=== PATIENT | male | born 1935 | race Caucasian/White ===

== ENCOUNTER → 2018-11-11 14:37 | Outpatient (CLI) | payer MEDICARE, SELFPAY ==
--- NOTE | 2018-11-11 14:40 | RAD_ITS ---
STUDY: X-RAY - LEFT SHOULDER REASON FOR EXAM: Male, 83 years old. Shoulder pain TECHNIQUE: 4 view(s) of the shoulder. COMPARISON: None. FINDINGS: There is generalized osteopenia. There are small osteophytes at the AC joint. There is mild sclerosis of greater tuberosity. There are calcifications lateral to the greater tuberosity likely within the subdeltoid bursa. Normal visualized pulmonary apex. RAD/Shoulder min 2 Views IMPRESSION: Benign soft tissue calcifications lateral to the greater tuberosity which can be associated with chronic calcific tendinitis and bursitis, no acute fractures Electronically Signed: Bassam Freire, at 8:02 EDT Tel , Service support ,
--- NOTE | 2018-11-11 14:40 | RAD_ITS ---
STUDY: X-RAY - RIGHT SHOULDER REASON FOR EXAM: Male, 83 years old. Shoulder pain TECHNIQUE: 4 view(s) of the shoulder. COMPARISON: None. FINDINGS: No acute fractures. There is mild osteopenia.. There are small glenoid osteophytes. There are soft tissue calcifications superior to the humeral head. Normal visualized pulmonary apex. RAD/Shoulder min 2 Views IMPRESSION: Benign soft tissue calcifications superior to the humeral head which has high correlation with chronic calcific tendinitis, bursitis cannot be excluded. No acute fractures Mild osteoarthrosis Electronically Signed: Bassam Freire, at 8:05 EDT Tel , Service support ,
== END ==
PROVIDERS: PCP Internal Medicine; Referring Provider Orthopaedic Surgery; Visit Provider Orthopaedic Surgery
DX: M25.511 Pain in right shoulder (principal); M25.512 Pain in left shoulder
CPT/HCPCS: 73030

== ENCOUNTER → 2020-04-25 12:56 | Outpatient (CLI) | payer MEDICARE, SELFPAY ==
[2019-10-01 07:53] VITALS: BMI 31.6
--- NOTE | 2020-04-25 13:02 | CT_ITS ---
ACR Level 3 findings have been noted. An addendum which confirms receipt of the report will follow. STUDY: CT CHEST WITHOUT CONTRAST REASON FOR EXAM: Male, 85 years old. Patient with myasthenia gravis. Evaluate for thymoma. RADIATION DOSAGE (If Supplied By Facility): CTDIvol = ( 17.80 ) mGy, DLP = ( 694.02 ) mGycm TECHNIQUE: Transaxial imaging was performed without the administration of intravenous contrast material. Individualized dose optimization techniques were used for this CT. COMPARISON: None. FINDINGS: 1.3 cm round opacity posterior pleural surface superior segment left lower lobe. Second smaller less well-defined opacity posterior pleural surface left lower lobe more medial as compared to the first described abnormality. The heart is not enlarged. Coronary artery calcifications. No pericardial effusion. Normal mediastinum. Normal hilar regions. Normal unenhanced pulmonary arteries. Scattered atherosclerotic calcification of the thoracic aorta. Mild degenerative changes of the thoracic spine. 3.3 x 2.9 cm exophytic cyst posterior cortex superior pole left kidney incompletely visualized. CT/Chest without Contrast IMPRESSION: No anterior mediastinal mass to suggest thymoma. 2 rounded opacities left lower lobe which may represent pneumonia to include viral pneumonia. Coronary artery calcifications. 3.3 cm cyst left kidney incompletely visualized but probably an incidental finding. Electronically Signed: Kin Barry MD at 23:48 EST , Service support ,
== END ==
PROVIDERS: PCP Internal Medicine; Visit Provider Psychiatry & Neurology Neurology
DX: G70.00 Myasthenia gravis without (acute) exacerbation (principal)
CPT/HCPCS: 71250